=== PATIENT | female | born 1975 | race Caucasian/White ===

== ENCOUNTER → 2018-01-23 | Day surgery (SDC) | payer OTHER ==
[~2018-01-23] VITALS: Ht 165.1 cm; Wt 53.5 kg
[~2018-01-23] MED LIST: FIORICET 325 MG1 TAB PO; MIRENA1 EACH; VENLAFAXINE HC225 MG PO; VIBERZI100 MG PO
--- NOTE | 2018-01-23 07:22 | History & Physical Pre-Op ---
General Information and HPI History of Present Illness: Bibiana is a 42-year-old female with a long-standing and worsening complaint of pain to her right foot. The patient has undergone an extended course of conservative care, including shoe gear and activity modification, rest, immobilization and courses of NSAIDs. None of this is yielded her any significant relief. The patient presents today for preoperative surgical consultation. Allergies/Medications Allergies: Coded Allergies: adhesive (SKIN REDDENS FROM CONTACT - SENSITIVE SKIN 01/19/18) nickel (DERMATITIS 01/19/18) Home Med list Eluxadoline (Viberzi) 100 MG TABLET 1 TAB PO BID IBS (Reported) Levonorgestrel (Mirena) 20 MCG/24 HOUR (5 YEARS) IUD CONTROL (Reported) Venlafaxine HCl (Venlafaxine HCl ER) 225 MG TAB.ER.24 1 TAB PO DAILY MENTAL HEALTH (Reported) Past History Medical History Neurological: migraine Cardiovascular: MITRAL VALVE PROLAPSE Gastrointestinal: IBS? Psychiatric: anxiety Surgical History Pertinent Surgical History: LT FOOT TONSILLECTOMY NOSE SX Review of Systems Review of Systems: Unremarkable except for that noted in history present illness Exam & Diagnostic Data Physical Exam: Lungs clear bilaterally. Heart sounds rate and rhythm regular. Lower extremity physical exam demonstrates intact pedal pulses bilaterally. Pulses dorsalis pedis and posterior tibial arteries are palpable bilaterally. Patient without any sensory motor deficits. Deep tendon reflexes grossly intact. Patient noted to have significant pain with palpation or range of motion through the right first metatarsophalangeal joint. The hallux is noted to be tracking in track bound. No crepitus identified with range of motion. Assessment/Plan Assessment/Plan: Painful bunion right foot. A lengthy discussion reviewing both surgical and conservative options was held the patient at bedside and the patient elected to go forward with surgery despite the risks. As Ranked By This Provider Problem List: 1. Acquired hallux valgus of right foot Attending MD Review Statement Attending Statement Attending MD Statement: examined this patient
--- NOTE | 2018-01-23 13:10 | Operative Report ---
Operative/Inv Procedure Report Surgery Date: 01/23/18 Name of Procedure: 1 bunionectomy right foot 2 intraoperative administration of ankle block anesthesia Pre-Operative Diagnosis: 1 hallux valgus right foot Post-Operative Diagnosis: The same Estimated Blood Loss: scant Surgeon/Technical Translator: Ankit Pickens DPM Anesthesia: moderate sedation, block Operative/Procedure Note Note: After obtaining informed consent the patient was brought to the operating room and placed on the operating table in the supine position. The patient was securely fastened to the operating table utilizing safety belt. After administration of IV sedation, 10 mL of 0.5% Marcaine plain was infiltrated about the patient's right ankle. A well-padded ankle tourniquet was placed about the patient's right lower extremity. 2 g of Ancef were delivered intravenously times one dose. The right foot and ankle within scrubbed, prepped and draped in usual aseptic manner. The right lower extremity was elevated to examine to limb, at which point the ankle tourniquet was inflated 250 mmHg. Attention directed dorsal aspect the right foot, where 6 cm linear incision was made just medial to the course of the extensor hallucis longus tendon. The dissection was then carried down to subtenons tissues. All vital neurovascular structures were identified protected. An inverted L capsulotomy was then performed, exposing the medial eminence. This was then removed a sagittal bone saw. Attention was then directed to the first interspace, where a lateral capsulotomy was performed with resection of the fibular suspensory ligament and the oblique head of the abductor hallucis tendon. The extensor hallucis brevis tendon was identified and tenotomized. A Chevron type osteotomy was then performed and the capital fragment was transposed laterally. It was then fixated utilizing standard AO fixation techniques. The medial shelf was then revised. The capture structures were repaired with 3-0 Vicryl. Subtenons tissues reapproximated 4-0 Vicryl. The skin edges were then reapproximated with 4-0 Monocryl. Incision was then dressed with Steri-Strips, Xeroform, 4 x 4's, Kerlix and an Vito wrap. The patient was noted to tolerate both procedure and anesthesia well and the patient was transported from the operating room to recovery with vital signs stable and vascular status intact all digits right foot.
== END ==
LOC: STS 03:24
DX: M20.11 Hallux valgus (acquired), right foot (principal); I34.1 Nonrheumatic mitral (valve) prolapse
CPT/HCPCS: 81025; J0690; J1885; J2001; J2250; J2405; J3490